=== PATIENT | female | born 1990 | race Caucasian/White ===

== ENCOUNTER 2025-05-05 13:26 | Emergency (ER) | payer BC, SELFPAY ==
[2025-05-05 13:28] VITALS: BP 156/96; PULSE 120; RESP 17; TEMP 36.6; O2SAT 98; BMI 40.5
[2025-05-05 13:32] VITALS: TEMP 36.6; O2SAT 100
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
[2025-05-05] MEDS: Diphth,Pertuss(Acell),Tet Vac 0.5 ML Vial IM (14:02)
[2025-05-05 14:27] VITALS: BP 164/96; PULSE 119; RESP 18; O2SAT 99
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
[2025-05-05 15:00] VITALS: BP 148/86; PULSE 113; RESP 16; O2SAT 99
[2025-05-05] MEDS: Ketorolac 30 MG/ML Syringe IV (15:12)
[2025-05-05] MEDS: Lidocaine 1% (20 ml mdv) 20 ML Vial 10 ML INFILT (15:13)
[2025-05-05 15:54] VITALS: BP 142/88; PULSE 120; RESP 18; O2SAT 98
== END 2025-05-05 16:12 | disposition home or self-care (01) ==
PROVIDERS: Emergency Provider Emergency Medicine; PCP Family Medicine; Visit Provider Emergency Medicine
DX: S66.921A Laceration of unspecified muscle, fascia and tendon at wrist and hand level, right hand, initial encounter (principal); S80.01XA Contusion of right knee, initial encounter; S50.811A Abrasion of right forearm, initial encounter; S61.212A Laceration without foreign body of right middle finger without damage to nail, initial encounter; S20.20XA Contusion of thorax, unspecified, initial encounter; S61.401A Unspecified open wound of right hand, initial encounter; F17.290 Nicotine dependence, other tobacco product, uncomplicated; V42.5XXA Car driver injured in collision with two- or three-wheeled motor vehicle in traffic accident, initial encounter
CPT/HCPCS: 12001; 71046; 73130; 73564; 90715; 96374; 99285; A4216

== ENCOUNTER 2025-05-11 06:06 | Day surgery (SDC) | payer BC, SELFPAY ==
[2025-05-11] VITALS (8 sets, daily range): BP systolic 110–132; BP diastolic 62–87; PULSE 95–116; RESP 16; TEMP 36.6–37.1; O2SAT 99–100; BMI 39.0
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
[2025-05-11 06:37] LABS: Internal QC Validated? YES +Cl - CLEAR BKGD; Pregnancy, Urine Negative Negative
[2025-05-11] MEDS: Lactated Ringers 1,000 ML 15 ML IV (06:57)
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
[2025-05-11] MEDS: Cefazolin 2 GM in 0.9% Normal Saline (100mL Bag) 100 ML IV (07:35)
[2025-05-11] MEDS: Bupivacaine 0.25% 30 ML Vial (08:20)
[2025-05-11] MEDS: Lidocaine 1% /Epi 1:100 (50ml) 50 ML VIAL (08:20)
--- NOTE | 2025-05-11 08:45 | PCM.POST.ANE ---
Anesthesia: Postop Eval I Current Vital Signs Temperature: 98.8 F Pulse Rate: 102 Blood Pressure: 127/76 Respiratory Rate: 16 Pulse Ox: 100 Oxygen Delivery Method: Room Air Assessment Airway patent: Yes Spontaneous unlabored respirations: Yes Mental status: Awake nausea: No Vomiting: No Anesthesia Complication: No Fluid Hydration Crystalloid volume administer (ml): 500 Total IV fluid infused: 500 Progress Note Anesthesia document: Postop Eval 1 completed: Yes
--- NOTE | 2025-05-11 08:59 | PCM.OPRPT ---
Operative Report (Standard) Operative Information Date of Procedure: 05/11/25 Pre-Operative Diagnosis: Right long finger extensor digitorum communis (EDC) tendon laceration (hand level) Post-Operative Diagnosis: Same Surgery/Procedure Performed: 1) Exploration of right hand dorsal laceration with repair of extensor digitorum communis (EDC) tendon at the hand level (CPT: 45279) quality assurance monitor chassis: Yes Swimming Pool Service Technician: Su Mcfarlane Tasks completed by assistant women's rowing coach: Retracting Type of Anesthesia: MAC/Supplemental (20 cc of a 50-50 mixture of 1% lidocaine with 1-200,000 epinephrine and quarter percent Marcaine with 1-200,000 epinephrine) RN Documented Start/Stop Times: Operation Date: 05/11/25 07:30 Case Time Into Pre-Op 05/11/25 06:22 Out of Pre-Op 05/11/25 07:32 Anesthesia Start 05/11/25 07:33 Into Room 05/11/25 07:33 Procedure Start 05/11/25 07:57 Procedure End 05/11/25 08:36 Anesthesia End 05/11/25 08:41 Out of Room 05/11/25 08:41 Into Recovery 05/11/25 08:43 Into Phase II Recovery 05/11/25 09:06 Out of Recovery 05/11/25 09:06 Out of Phase II 05/11/25 09:47 Procedure Start Time: 07:57 Procedure Stop Time: 08:36 Select all DRAINS/GRAFTS/IMPLANTS that apply: None Estimated Blood Loss: Minimal Specimen collected: No Description of surgery: Indications: Patient is delightful 34-year-old female with a laceration to the dorsum of the right hand, concerning for extensor tendon laceration to the right long finger. Understands risk benefits and alternatives to procedure today. Procedure details: Patient was marked in preoperative holding and taken back to the operating room where she was administered sedation and local anesthesia. Timeout was performed and she was prepped and draped in sterile fashion. Esmarch was used and the arm tourniquet was insufflated to 250 mmHg. 15 blade scalpel was used to remove the sutures and make proximal and dorsal extensions of the incision (incision was transverse so the proximal and distal incisions were made longitudinally to break up the scar pattern). Careful dissection through the subcutaneous tissue was then performed with tenotomy scissors to preserve all cutaneous nerves and the tendon stumps were identified. The EDC tendon had been completely transected (to the long finger) at the level of zone 6 over the metacarpal. The distal stump was severely frayed. The wound was irrigated with 1 L of normal saline. I examined carefully for any retained foreign body (glass) and there was none identified. The stumps were then approximated and secured with a temporary Hosea needle. A 4-0 FiberWire was then used to complete a Tsuge-Kinney repair. There was then a frayed portion of the distal stump which was secured with a jurmir-vy-qsuyr 3-0 Ethibond suture to included it across the repair. This was a total of 6 core strands. A 5-0 Prolene suture was then used for running epitendinous. The wound was further irrigated with Irrisept and copious amounts normal saline. The tourniquet was let down hemostasis was obtained with bipolar electrocautery. The wound was then closed with 4-0 Monocryl deep dermal suture followed by 3-0 nylon horizontal mattress and interrupted sutures. A volar blocking extension splint was then placed and she was awakened and taken to the PACU in stable condition. She tolerated the procedure well. Postoperative plan: Follow-up in 1 week for wound check and splint exchange for a cast that will remain for 2 weeks (3 weeks total of immobilization in extension). She will then begin extensor tendon protocol with OT. Surgical Findings: I examined carefully for any retained foreign body (glass) and there was none identified. Complications Complications: No Admit VTE Documentation VTE Mechan Device Prophylaxis: SCD's
--- NOTE | 2025-05-11 16:32 | POSTOPAN2_ITS ---
Anesthesia Postop Eval I Sum Postop Eval Completion status Anesthesia document: Postop Eval 1 completed: Yes Anesthesia Postop Eval I Summary Anesthesia Postop Eval I Summary: Anesthesia Postop Eval I: Assessment Summary Airway patent Yes 05/11/25 08:47 FILING AND POLISHING [email or web address] Spontaneous unlabored Yes 05/11/25 08:47 FILING AND POLISHING [email or web address] respirations Mental status Awake 05/11/25 08:47 FILING AND POLISHING [email or web address] nausea No 05/11/25 08:47 FILING AND POLISHING [email or web address] Vomiting No 05/11/25 08:47 FILING AND POLISHING [email or web address] Anesthesia Postop Eval I: Fluid Summary Crystalloid volume administer 500 05/11/25 08:47 FILING AND POLISHING [email or web address] (ml) Colloids volume administered ( ml) Blood Product volume administered (ml) Total IV fluid infused 500 05/11/25 08:47 FILING AND POLISHING [email or web address] Anesthesia Postop Eval I: Summary Notes Anesthesia Complication No 05/11/25 08:47 FILING AND POLISHING [email or web address] Anesthesia Complication Comment: Post-operative progress note Anesthesia: Postop Eval II Evaluation Mental status: Awake and Calm Pain Level: 0 nausea: No Vomiting: No Complications Anesthesia Complication: No
--- NOTE | 2025-05-11 16:32 | PCM.POSTANE2 ---
Anesthesia Postop Eval I Sum Postop Eval Completion status Anesthesia document: Postop Eval 1 completed: Yes Anesthesia Postop Eval I Summary Anesthesia Postop Eval I Summary: Anesthesia Postop Eval I: Assessment Summary Airway patent Yes 05/11/25 08:47 [email or web address] Spontaneous unlabored Yes 05/11/25 08:47 [email or web address] respirations Mental status Awake 05/11/25 08:47 [email or web address] nausea No 05/11/25 08:47 [email or web address] Vomiting No 05/11/25 08:47 [email or web address] Anesthesia Postop Eval I: Fluid Summary Crystalloid volume administer 500 05/11/25 08:47 [email or web address] (ml) Colloids volume administered ( ml) Blood Product volume administered (ml) Total IV fluid infused 500 05/11/25 08:47 [email or web address] Anesthesia Postop Eval I: Summary Notes Anesthesia Complication No 05/11/25 08:47 [email or web address] Anesthesia Complication Comment: Post-operative progress note Anesthesia: Postop Eval II Evaluation Mental status: Awake and Calm Pain Level: 0 nausea: No Vomiting: No Complications Anesthesia Complication: No
== END 2025-05-11 09:47 | disposition home or self-care (01) ==
LOC: SDC 06:08 → AC 06:12
PROVIDERS: Anesthesiology; PCP Family Medicine; Referring Provider Family Medicine; Visit Provider Surgery Plastic and Reconstructive Surgery
PROC: (CPT 26410; principal; 2025-05-11 07:15)
DX: S66.322A Laceration of extensor muscle, fascia and tendon of right middle finger at wrist and hand level, initial encounter (principal); F31.9 Bipolar disorder, unspecified; V99.XXXA Unspecified transport accident, initial encounter; F41.9 Anxiety disorder, unspecified; F17.290 Nicotine dependence, other tobacco product, uncomplicated
CPT/HCPCS: 26410; 81025; J2405

== ENCOUNTER → 2025-06-24 | Outpatient (CLI) | payer BC, SELFPAY ==
--- NOTE | 2025-06-24 | FORE_PTH ---
PATIENT: PRUDENCIO VALLES [facility]: [facility] U#:[id number] AGE/SX: 34/F ROOM: RE06/24/[address]: Dr. David Gutierrez MD : 1990 BED: DIS: 06/24/2025 SPEC #: [id number] RECD: 06/24/25 18:07 STATUS: GENE REAlexandra #: [id number] CHRISTOPHER: 06/24/25 00:[address]: David Gutierrez DEPT: SURGICAL PATHOLOGY RECD BY: Sigifredo Davies ENTERED: 06/27/25 13:16 SP TYPE: FOREIGN B OT DR: Dr. Georgia Velazquez, DO Tissues: A - FOREIGN BODY Procedures: Surgery Specimen Level I HEADER OPERATION: Removal foreign body right hand PRE-OP DIAGNOSIS: Right hand, foreign body removal TISSUE SUBMITTED: A- Foreign body, right hand removal MICROSCOPIC DIAGNOSIS A. Hand, right, foreign body, removal: - Foreign body confirmed (gross examination only). MICROSCOPIC DESCRIPTION Slides are reviewed. GROSS DESCRIPTION A. Received in formalin labeled with the patient's name and date of . Designated as foreign body right hand is a 0.4 x 0.4 x 0.1 cm transparent fragment of apparent glass. No sections are submitted. The specimen is for gross examination only. [place] 06/27/2025 CPT:87466
== END | disposition home or self-care (01) ==
PROVIDERS: PCP Family Medicine; Referring Provider Surgery Plastic and Reconstructive Surgery; Visit Provider Surgery Plastic and Reconstructive Surgery
DX: S60.551A Superficial foreign body of right hand, initial encounter (principal); X58.XXXA Exposure to other specified factors, initial encounter
CPT/HCPCS: 88300

== ENCOUNTER 2025-07-26 14:00 | Outpatient (RCR) | payer BC, SELFPAY ==
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
--- NOTE | 2025-07-26 14:30 | HP.OTDCSUM_ITS ---
Discharge Summary D/C Summary: It has been my pleasure to treat PRUDENCIO VALLES under orders from Dr. David Gutierrez MD, for the diagnosis of extensor tendon for a total of 9 visit(s). Please see the following information for a summary of their discharge status. Overall Improvement % Improvement: 98 Objective Objective/Function: pt states she has returned to her PLOF with ADLs- has gone back to making 10-15 lo right psychotherapist strength 69# left 75# pt demo with full digit ext. right MF MCP 0/85 right RF MCP +5/80 right SF MCP 0/75 Goals Patient Goals: Regain Mobility, Use Hand/Wrist/Arm Normally Again and Be More Independent in ADLS Goal:Daily scar massage when approriate: Yes Goal:ROM equal to unaffected hand: Yes Goal:Emergency Service Restorer/Pinch strength at least 75% of unaffected hand: Yes Goal:No pain with affected hand use: Yes Goal:Full use of affected hand in daily activities including work: Yes Other Goal: orthosis use:pt will demo understanding of orthosis use and precautions by end of 1st session. Plan Plan: light use of hand with daily tasks D/C Information Discharge Comments: pt has met OT goals and has returned to her PLOF. pt has initiated a health and wellness membership with using a personal financial planner as well to cont. to improve her strength. pt did great. d/c sentence: If there are questions or concerns regarding this patient's occupational therapy, please fell free to call me at [phone]. Thank you for the referral of this patient. Sincerely, Christina Johnson, OTR/L, CHT
== END 2025-07-26 19:00 | disposition home or self-care (01) ==
LOC: OT 14:00
PROVIDERS: PCP Family Medicine; Referring Provider Surgery Plastic and Reconstructive Surgery; Visit Provider Surgery Plastic and Reconstructive Surgery
DX: S66.822D Laceration of other specified muscles, fascia and tendons at wrist and hand level, left hand, subsequent encounter (principal); S61.402D Unspecified open wound of left hand, subsequent encounter
CPT/HCPCS: 97110; 97140; 97166; 97530